=== PATIENT | female | born 1960 | race Caucasian/White ===

== ENCOUNTER 2017-07-18 19:31 | Emergency (ER) | payer OTHER, MEDICAID ==
[~2017-07-18] VITALS: Ht 160 cm; Wt 173.7 kg
[~2017-07-18 19:31] MED LIST: ACIPHEX; ADVAIR 250-501 EACH IH; ADVAIR 250-501 EACH INH; ALBUTEROL2.5 MG/32 INH; ANASPAZ0.125 MG SL; ASPIRIN81 M2 PO; BENICAR20 MG PO; BENICAR40 MG PO; BRILINTA90 MG PO; CELEBREX 200 M200 M1 PO; CIPROFLOXACIN500 M1 PO; COMBIVENT IN; DOXYCYCLINE 10100 MG PO; FLAGYL500 MG PO; GLUCOPHAGE500 MG PO; IBUPROFEN 800800 MG PO; JANUMET 50-5001 EACH PO; LASIX 20 MG TAB20 MG PO; LIORESAL 10 MG10 MG PO; LISINOPRIL2.5 MG PO; METOPROLOL SUCC25 M1 PO; MOBIC15 MG PO; MOBIC7.5 M1 PO; NIASPAN 500 MG500 M1 PO; NITROGLYCERIN0.4 MG SL; NORCO 5-325 TA1 EACH PO; NORETHINDRONE AC5 M1 PO; NYSTATIN 1100000 U/M PO; ONDANSETRON ODT4 MG PO; OXYGEN; PROVENTIL IH; SINGULAIR 10 MG10 M1 PO; SYMBICORT; TRAMADOL 50 MG50 MG PO; VALIUM5 MG PO; VENTOLIN HFA 1818 GM INH; XANAX 0.5 MG0.5 M1 PO; ZANTAC 150MG T150 M1 PO; ZOCOR40 MG PO; ZYRTEC 10 MG TA10 M1 PO; ZYRTEC 10 MG TA10 MG PO
[2017-07-18] MEDS ORDERED: XANAX 0.5 MG0.5 MG PO (19:41)
[2017-07-18 20:02] LABS: ABSOLUTE BASOPHILS 0.1 thou/uL (0.0-0.2); ABSOLUTE EOSINOPHILS 0.4 thou/uL (0.0-0.7); ABSOLUTE LYMPHOCYTES 2.5 thou/uL (0.8-5.3); ABSOLUTE MONOCYTES 0.7 thou/uL (0.0-1.2); ABSOLUTE NEUTROPHILS 9.6 thou/uL (1.6-8.1); BASOPHILS 0.6 %; EOSINOPHILS 2.8 %; HEMOGLOBIN 16.7 gm/dL (12.0-15.0); LYMPHOCYTES 19.1 %; MCH 29.5 pg (26.0-34.0); MCHC 32.7 g/dL (28.0-37.0); MCV 90.1 fL (80.0-100.0); MONOCYTES 5.3 %; MPV 10.3 fl. (7.2-11.1); NUCLEATED RBCS 0 /100WBC; PLATELET COUNT* 227 thou/uL (150-400); POLYS 72.2 %; RBC 5.67 mil/uL (4.20-5.00); RDW-CV 14.7 % (10.5-14.5); WBC 13.3 thou/uL (4.0-11.0)
[2017-07-18 20:18] LABS: CALCIUM 9.3 mg/dL (8.5-10.1); POTASSIUM 4.5 mmol/L (3.5-5.1)
[2017-07-18 20:27] LABS: URINE BILIRUBIN NEGATIVE (Negative); URINE BLOOD 2+ (Negative); URINE CLARITY CLEAR; URINE COLOR YELLOW; URINE GLUCOSE-RANDOM 2+ (Negative); URINE KETONES NEGATIVE (Negative); URINE LEUKOCYTES-REFLEX NEGATIVE (Negative); URINE NITRITE-REFLEX NEGATIVE (Negative); URINE PROTEIN NEGATIVE (Negative); URINE SPECIFIC GRAVITY 1.025 (1.005-1.030); URINE UROBILINOGEN 0.2 E.U./dl (0.2-1.0)
[2017-07-18 20:30] LABS: ALBUMIN 3.3 g/dL (3.4-5.0); TOTAL BILIRUBIN 0.5 mg/dL (<0.1-1.0); TOTAL PROTEIN 7.5 g/dL (6.4-8.2)
[2017-07-18 20:39] LABS: CASTS None Seen /LPF (None Seen); SQUAMOUS >10 Many /LPF (0-3)
[2017-07-18 20:41] LABS: BACTERIA-REFLEX 1-9 Few /HPF (None Seen); CRYSTALS None Seen /LPF (None Seen); URINE RBC 3-10 Few /HPF (0-2); URINE WBC-REFLEX 0-5 Rare /HPF (0-5)
[2017-07-18] MEDS ORDERED: HYDROCODONE-AP1 EAC6 PO (21:18)
[2017-07-18] MEDS ORDERED: BACTRIM DS TAB1 EACH PO (21:37)
[2017-07-18 21:48] VITALS: BP 166/78
[2017-12-26] MEDS ORDERED: AYGESTIN 5 MG TA5 M1 PO (10:32)
[2017-12-26] MEDS ORDERED: LASIX PO (10:36)
[2017-12-26] MEDS ORDERED: SINGULAIR 10 MG10 M1 PO (10:36)
[2017-12-26] MEDS ORDERED: OXYBUTYNIN CHLO10 MG PO (10:37)
[2017-12-26] MEDS ORDERED: ATORVASTATIN CA40 MG PO (10:37)
[2017-12-26] MEDS ORDERED: VICTOZA0.6 MG/0.1 SUBQ (10:37)
[2017-12-26] MEDS ORDERED: OXYGEN MISCELL (10:44)
== END 2017-07-18 21:52 | disposition home or self-care (01) ==
LOC: M.ERS 19:31
PROVIDERS: Physician Assistant
DX: R10.32 Left lower quadrant pain (principal); R31.9 Hematuria, unspecified; J45.909 Unspecified asthma, uncomplicated; M19.90 Unspecified osteoarthritis, unspecified site; E11.9 Type 2 diabetes mellitus without complications; F17.210 Nicotine dependence, cigarettes, uncomplicated; Z95.5 Presence of coronary angioplasty implant and graft; Z88.5 Allergy status to narcotic agent; Z88.1 Allergy status to other antibiotic agents; Z88.0 Allergy status to penicillin; Z91.040 Latex allergy status; Z88.8 Allergy status to other drugs, medicaments and biological substances

== ENCOUNTER → 2017-08-21 | Outpatient (CLI) | payer OTHER, MEDICAID ==
[~2017-08-21] MED LIST changes: +ATORVASTATIN CA40 MG PO; +AYGESTIN 5 MG TA5 M1 PO; +BACTRIM DS TAB1 EACH PO; +HYDROCODONE-AP1 EAC6 PO; +LASIX PO; +OXYBUTYNIN CHLO10 MG PO; +OXYGEN MISCELL; +VICTOZA0.6 MG/0.1 SUBQ; +XANAX 0.5 MG0.5 MG PO
== END ==
LOC: M.RAD 11:00 → M.LAB 11:02 → M.ULTRA 11:30
DX: Z12.31 Encounter for screening mammogram for malignant neoplasm of breast (principal); N93.8 Other specified abnormal uterine and vaginal bleeding; N88.8 Other specified noninflammatory disorders of cervix uteri; Z68.44 Body mass index [BMI] 60.0-69.9, adult; Z87.42 Personal history of other diseases of the female genital tract

== ENCOUNTER → 2017-10-13 | Outpatient (CLI) | payer OTHER, MEDICAID | LOC: M.RAD 11:10 | DX: N39.0 Urinary tract infection, site not specified (principal); M17.11 Unilateral primary osteoarthritis, right knee ==

== ENCOUNTER → 2017-12-26 | Outpatient (CLI) | payer MEDICARE, MEDICAID ==
--- NOTE | 2018-01-04 15:18 | PAINCON ---
[address] [address] PAIN MANAGEMENT CONSULTATION Name: DIOGO MEDINA Room: [facility] Priscilla#: [id number] Admission: 12/26/17 Attend Phys: Gladys Anderson MD Discharge: Date of : 60 Report #: [id number] THIS REPORT FOR: //name// CC: Alicia Anderson DATE OF SERVICE: 12/26/2017 CHIEF COMPLAINT: Chronic pain in her arms, wrists, knees, fingers and shoulders. FOLLOWUP HISTORY: The patient is a 57-year-old female who has been referred to the Pain Clinic for evaluation. The patient states that she has a history of chronic pain. It stems from Lyme's disease. It has been problematic since about 2003. Between 2003 and 2006, there was some question as to what the problem was. She was then diagnosed in 2008 by an infection specialist as having had Lyme's disease. She continues to have pain and discomfort in joints, involving her neck, shoulders, wrists and elbows, and some generalized joint pain. She feels that her pain can wax and wane in 3-4 day intervals. She notes some increased severity in the pain. Pain is worsened with cold weather, stress, and exhaustion. I am not sure that anything significantly improves its character. She describes it as continuous, burning, cramping, aching, pounding, and tender. She rates it as a 7/10 on most days. The patient has some problems with a bleeding disorder. She is not to take nonsteroidal anti-inflammatory medications on a regular basis because of this. She has used prednisone. Problem with prednisone is that she has some untoward reactions with this medication. She must take Benadryl as a precaution when she uses prednisone medication secondary to untoward problems that she has had with it in the past. ALLERGIES: BAND-AIDS, CEPHALEXIN, MONOHYDRATE FROM KEFLEX, PENICILLIN, CODEINE, METHYLPREDNISOLONE, PREDNISONE, LEVOFLOXACIN, LATEX. CURRENT MEDICATIONS: Ventolin 2 puffs, alprazolam 0.5 mg t.i.d., aspirin 81 mg, Lipitor 40 mg, baclofen 10 mg t.i.d., Celebrex p.r.n. 200 mg, Zyrtec 10 mg, Advair 250/50 one puff b.i.d., Victoza 0.6 mg injection subcutaneously, Singulair 10 mg, norethindrone 5 mg t.i.d., Benicar 40 mg, oxybutynin 10 mg, oxygen 2 liters, Janumet 50/500, tramadol 50 mg t.i.d., Lasix p.r.n. PAST MEDICAL HISTORY: 1. Arthritis. 2. Asthma. 3. Bleeding disorder. 4. Diabetes mellitus. 5. Gallstone. 6. Heart attack. 7. [place] [address] PAIN MANAGEMENT CONSULTATION Name: DIOGO MEDINA Room: [facility]#: [id number] Admission: 12/26/17 Attend Phys: Gladys Anderson MD Discharge: Date of : 60 Report #: [id number] 8. Hypertension. 9. Insomnia. PAST SURGICAL HISTORY: 1. , classical in 1982, 1986, 1987, 1993. 2. Cholecystectomy in 1994. 3. Hernia repair in 1997, 1998. 4. Tonsils and adenoids in 1971. 5. Tubal ligation in 1993. FAMILY HISTORY: Hypertension, mother. Colon cancer, father. 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 She does smoke cigarettes. REVIEW OF SYSTEMS: Questionnaire 12-point: Generally good health, wears glasses, heart trouble, shortness of breath with walking, frequent urination, kidney stones, diabetes, heat/cold intolerance, joint pain, joint stiffness, weakness of muscles, muscle pain, cramping, difficulty walking, tremors, nervousness, insomnia, easy bruising. LABORATORY DATA: No new laboratory values are available at the time of our interview. PAIN CLINIC ASSESSMENT: 1. History of osteoarthritis: The patient has seen an orthopedic doctor in regards to her right knee pain. 2. Height 5 feet 3 inches, weight 370 pounds, BMI is 66. 3. Vital signs: Blood pressure 133/79, heart rate 102, respiratory rate 16, room air saturation 89%, temperature 98.3. Followup pulse oximeter reading 94% after the patient has been sitting and resting for a prolonged period of time. 4. Pain intensity: 7/10. 5. Fall risk: The patient has not fallen in the last 3 months. 6. Blood thinner: The patient is not on a blood thinning medication. 7. History of hypertension: The patient is not being treated for hypertension. 8. Opioids greater than 6 weeks: The patient is not on opioids, but has been using tramadol 50 mg t.i.d. last 6 weeks. 9. Risk assessment tool. 10. Functional assessment tool. 11. Recreational drug use: The patient denies use of recreational drugs. 12. Tobacco: The patient does smoke cigarettes, has smoked for about 25 years. 13. Alcohol: The patient denies use of alcoholic beverages. She states her father was an alcoholic and she chose not to drink secondary to this problem. PHYSICAL EXAMINATION: GENERAL: The patient is a well-developed white female. Morbidly [place] [address] PAIN MANAGEMENT CONSULTATION Name: DIOGO MEDINA Room: [facility]#: [id number] Admission: 12/26/17 Attend Phys: Gladys Anderson MD Discharge: Date of : 60 Report #: [id number] alert and oriented x 3. Affect is appropriate. Speech is fluent. HEENT: Normocephalic, atraumatic. Extraocular eye muscles intact. Mucous membranes are moist. Sclerae nonicteric. Hearing is within normal limits. NECK: Without adenopathy or JVD. LUNGS: Distant. HEART: The patient states she has a history of a murmur. ABDOMEN: Protuberant with a significant pannus. EXTREMITIES: Upper extremity muscle strength is judged to be 5/5 for the major muscle groups. Lower extremity muscle strength 5/5. The patient complains of pain and discomfort in her right knee. Complains of pain and discomfort in the shoulders, neck, wrists and joints. IMPRESSION: 1. History of Lyme's disease, contacted in 2013, diagnosed in 2008, with generalized aches and pain in the muscles and joints. 2. Asthma. 3. Bleeding disorder. 4. Diabetes mellitus. 5. History of gallstones. 6. History of broken heart syndrome. 7. Heart attack. 8. Heart disease. 9. Hypertension. 10. Insomnia. 11. The patient was hospitalized with respiratory distress this flu season with compromise of her oxygenation. 12. Obstructive sleep apnea. 13. Obesity. 14. Hypoventilation syndrome. 15. Urinary incontinence. RECOMMENDATIONS: I had a long discussion with the patient. She does have chronic pain associated with Lyme's disease. This has been reported as a chronic problem as a result of Lyme's disease. She has some difficulty with her breathing. She states that she had H-1 flu this year and was hospitalized as a result of that. She has continued to have significant problems with her breathing since that time. Unable to walk or exercise to any great length secondary to increasing shortness of breath. The patient is on oxygen at home because of this. We described the reasoning behind use of CPAP machines, oxygen and those respiratory treatments, which can be helpful with asthma. The patient has a saturation today at rest during the interview at 89%. We have explained to her that I am not sure that we have any opioids medications or other medications, which would not cause some problems for her. Given that she has respiratory problems and is on oxygen, use of an opioid medication will probably suppress this even more so worsening the strain on her heart while she is asleep. She finds that tramadol is not as effective as she would like. Again, [place] [address] PAIN MANAGEMENT CONSULTATION Name: DIOGO MEDINA Room: [facility]#: [id number] Admission: 12/26/17 Attend Phys: Gladys Anderson MD Discharge: Date of : 60 Report #: [id number] I am not sure of any other pain medications that will be helpful. She states that she has a bleeding disorder, that she is not to take nonsteroidal anti-inflammatories on a long-term basis. We explained that our position is to help patients and avoid hurting them. At this juncture, I think she should continue with tramadol as tolerated. Other medications might worsen her condition. We would like to thank you for letting us participate in her care. We hope she continues to improve. <ELECTRONICALLY SIGNED> By: Gladys Anderson MD 01/04/18 1518 1509 1959N. Shane Anderson MD /nt
== END ==
LOC: M.PC 11-30 10:40
DX: I11.0 Hypertensive heart disease with heart failure (principal); I50.89 Other heart failure; E11.9 Type 2 diabetes mellitus without complications; J45.909 Unspecified asthma, uncomplicated; G47.00 Insomnia, unspecified; E66.2 Morbid (severe) obesity with alveolar hypoventilation; R32 Unspecified urinary incontinence

== ENCOUNTER → 2018-04-17 | Outpatient (CLI) | payer OTHER, MEDICAID ==
[2018-04-17 11:16] LABS: ABSOLUTE BASOPHILS 0.1 thou/uL (0.0-0.2); ABSOLUTE EOSINOPHILS 0.4 thou/uL (0.0-0.7); ABSOLUTE LYMPHOCYTES 2.5 thou/uL (0.8-5.3); ABSOLUTE MONOCYTES 0.5 thou/uL (0.0-1.2); ABSOLUTE NEUTROPHILS 7.8 thou/uL (1.6-8.1); BASOPHILS 0.8 %; EOSINOPHILS 3.1 %; HEMATOCRIT 49.1 % (37.0-47.0); HEMOGLOBIN 16.3 gm/dL (12.0-15.0); LYMPHOCYTES 22.5 %; MCH 29.9 pg (26.0-34.0); MCHC 33.2 g/dL (28.0-37.0); MCV 90.2 fL (80.0-100.0); MONOCYTES 4.5 %; MPV 9.6 fl. (7.2-11.1); NUCLEATED RBCS 0 /100WBC; PLATELET COUNT* 236 thou/uL (150-400); POLYS 69.1 %; RBC 5.44 mil/uL (4.20-5.00); WBC 11.3 thou/uL (4.0-11.0)
== END ==
LOC: M.LAB 10:52
PROVIDERS: Family Medicine
DX: D72.829 Elevated white blood cell count, unspecified (principal)

== ENCOUNTER 2018-06-07 13:11 | Emergency (ER) | payer OTHER, MEDICAID ==
[~2018-06-07] VITALS: Ht 162.6 cm; Wt 165.1 kg
--- NOTE | ~2018-06-07 | EKG ---
[place] [address] ELECTROCARDIOGRAM REPORT Name: DIOGO MEDINA [facility]#: [id number] Admission: 06/07/18 Attend Phys: Discharge: 06/07/18 Date of : 60 Report #: [id number] THIS REPORT FOR: //name// [facility] ED Test Date: 2018-06-07 Test Time: 14:26:33 Pat Name: DIOGO MEDINA Department: Room: Gender: F Tree Topper: RACHEL SAVAGE : 1960 Requested By: Kasandra Herrera Order Number: [id number] MD: Measurements Intervals [place] Rate: 91 P: 25 SC: 187 QRS: 118 QRSD: 101 T: 31 QT: 346 QTc: 426 Interpretive Statements Sinus rhythm Anteroseptal infarct, age indeterminate Compared to ECG 01/18/2013 08:09:32 Myocardial infarct finding now present Incomplete right bundle-branch block no longer present Left posterior fascicular block no longer present T-wave abnormality no longer present Prolonged QT interval no longer present [email or web address] By: 1426 1426 [place], [place] /JANEEN
[2018-06-07 14:07] LABS: ABSOLUTE EOSINOPHILS 0.1 thou/uL (0.0-0.7); ABSOLUTE LYMPHOCYTES 1.7 thou/uL (0.8-5.3); ABSOLUTE MONOCYTES 0.8 thou/uL (0.0-1.2); ABSOLUTE NEUTROPHILS 6.9 thou/uL (1.6-8.1); BASOPHILS 0.4 %; EOSINOPHILS 1.2 %; HEMATOCRIT 49.9 % (37.0-47.0); HEMOGLOBIN 16.6 gm/dL (12.0-15.0); LYMPHOCYTES 17.9 %; MCH 30.1 pg (26.0-34.0); MCHC 33.2 g/dL (28.0-37.0); MCV 90.7 fL (80.0-100.0); MONOCYTES 8.8 %; MPV 10.1 fl. (7.2-11.1); NUCLEATED RBCS 0 /100WBC; PLATELET COUNT* 248 thou/uL (150-400); POLYS 71.7 %; WBC 9.6 thou/uL (4.0-11.0)
[2018-06-07 14:09] LABS: BE 0.6 mmol/L (-2 to +3); HCO3 24.8 mmol/L (22.0-26.0); PCO2 38.8 mmHg (35.0-45.0); PO2 83.4 mmHg (75.0-100.0); pH 7.424 (7.340-7.450)
[2018-06-07 14:13] LABS: ANION GAP 10 mmol/L (7-16); BUN 13 mg/dL (7-18); CALCIUM 9.4 mg/dL (8.5-10.1); CHLORIDE 96 mmol/L (98-107); CO2 27 mmol/L (21-32); CREATININE 1.1 mg/dL (0.6-1.3); GLUCOSE 144 mg/dL (70-99); POTASSIUM 4.2 mmol/L (3.5-5.1); SODIUM 133 mmol/L (136-145)
[2018-06-07 14:20] LABS: ALBUMIN 3.5 g/dL (3.4-5.0); ALKALINE PHOSPHATASE 45 U/L (46-116); SGOT 47 U/L (15-37); SGPT 38 U/L (30-65); TOTAL BILIRUBIN 0.6 mg/dL (<0.1-1.0); TOTAL PROTEIN 7.8 g/dL (6.4-8.2); TROPONIN-I LEVEL <0.06 ng/mL (<0.06)
[2018-06-07] MEDS ORDERED: TESSALON PERLE100 M1 PO (16:19)
[2018-06-07] MEDS ORDERED: SPACE CHAMBER1 EACH INH (16:43)
[2018-06-07] MEDS ORDERED: DOXYCYCLINE HY100 M3 PO (16:43)
[2018-06-07 17:28] VITALS: BP 126/63
== END 2018-06-07 17:30 | disposition home or self-care (01) ==
LOC: M.ERS 13:11
PROVIDERS: Nurse Practitioner Family
DX: J20.9 Acute bronchitis, unspecified (principal); T38.0X5A Adverse effect of glucocorticoids and synthetic analogues, initial encounter; Y92.9 Unspecified place or not applicable; J45.909 Unspecified asthma, uncomplicated; M19.90 Unspecified osteoarthritis, unspecified site; M79.7 Fibromyalgia; E11.9 Type 2 diabetes mellitus without complications; Z95.5 Presence of coronary angioplasty implant and graft; Z90.49 Acquired absence of other specified parts of digestive tract; Z98.890 Other specified postprocedural states; F17.210 Nicotine dependence, cigarettes, uncomplicated; Z88.0 Allergy status to penicillin; Z88.1 Allergy status to other antibiotic agents; Z88.5 Allergy status to narcotic agent; Z91.040 Latex allergy status; Z88.8 Allergy status to other drugs, medicaments and biological substances

== ENCOUNTER 2018-06-09 08:05 | Inpatient (IN) | payer OTHER, MEDICAID ==
[~2018-06-09] VITALS: Ht 162.6 cm; Wt 166.5 kg
[~2018-06-09 08:05] MED LIST changes: +DOXYCYCLINE HY100 M3 PO; +SPACE CHAMBER1 EACH INH; +TESSALON PERLE100 M1 PO; -ZYRTEC 10 MG TA10 M1 PO
[2018-06-09 08:07] VITALS: BP 155/68
[2018-06-09 08:55] LABS: INFLUENZA A ANTIGEN None Detected (None Detect); INFLUENZA B ANTIGEN None Detected (None Detect)
[2018-06-09 09:06] LABS: ABSOLUTE BASOPHILS 0.1 thou/uL (0.0-0.2); ABSOLUTE EOSINOPHILS 0.1 thou/uL (0.0-0.7); ABSOLUTE LYMPHOCYTES 1.4 thou/uL (0.8-5.3); ABSOLUTE MONOCYTES 0.9 thou/uL (0.0-1.2); ABSOLUTE NEUTROPHILS 7.4 thou/uL (1.6-8.1); BASOPHILS 0.6 %; EOSINOPHILS 0.9 %; HEMOGLOBIN 16.5 gm/dL (12.0-15.0); MCH 29.8 pg (26.0-34.0); MCHC 33.1 g/dL (28.0-37.0); MCV 90.1 fL (80.0-100.0); MONOCYTES 9.4 %; MPV 10.5 fl. (7.2-11.1); NUCLEATED RBCS 0 /100WBC; PLATELET COUNT* 207 thou/uL (150-400); POLYS 75.1 %; RBC 5.55 mil/uL (4.20-5.00); RDW-CV 14.7 % (10.5-14.5); WBC 9.8 thou/uL (4.0-11.0)
[2018-06-09 09:11] LABS: ANION GAP 9 mmol/L (7-16); BUN 11 mg/dL (7-18); CALCIUM 8.5 mg/dL (8.5-10.1); CHLORIDE 95 mmol/L (98-107); CO2 28 mmol/L (21-32); GLUCOSE 152 mg/dL (70-99); POTASSIUM 4.4 mmol/L (3.5-5.1); SODIUM 132 mmol/L (136-145)
[2018-06-09 09:15] LABS: INR 1.1; PROTIME 10.8 Seconds (9.20-11.50)
[2018-06-09 09:21] LABS: ALBUMIN 3.3 g/dL (3.4-5.0); ALKALINE PHOSPHATASE 46 U/L (46-116); LIPASE 209 U/L (73-393); NT-PRO BRAIN NAT PEPTIDE 57 pg/mL (<300); SGOT 37 U/L (15-37); SGPT 34 U/L (30-65); TOTAL BILIRUBIN 0.7 mg/dL (<0.1-1.0); TOTAL PROTEIN 7.6 g/dL (6.4-8.2); TROPONIN-I LEVEL <0.06 ng/mL (<0.06)
[2018-06-09 09:49] VITALS: BP 130/82
[2018-06-09 10:00] VITALS: BP 148/81
[2018-06-09] MEDS ORDERED: NORCO 5-325 TA1 EACH PO (10:13)
[2018-06-09 12:01] LABS: AMP/METHAMP Negative (Negative); BARBITURATES Negative (Negative); BENZODIAZEPINES POSITIVE (Negative); COCAINE Negative (Negative); METHADONE Negative (Negative); OPIATES POSITIVE (Negative); PCP Negative (Negative); THC Negative (Negative)
[2018-06-09 15:25] LABS: BE 1.5 mmol/L (-2 to +3); HCO3 26.5 mmol/L (22.0-26.0); PCO2 42.6 mmHg (35.0-45.0); PO2 89.3 mmHg (75.0-100.0); pH 7.411 (7.340-7.450)
[2018-06-09 16:14] VITALS: BP 187/80
[2018-06-09 20:00] VITALS: BP 123/64
[2018-06-10] VITALS: BP 108/83
[2018-06-10 04:00] VITALS: BP 137/75
[2018-06-10 04:36] LABS: HEMATOCRIT 47.8 % (37.0-47.0); MCH 30.4 pg (26.0-34.0); MCHC 33.5 g/dL (28.0-37.0); MCV 90.8 fL (80.0-100.0); MPV 10.3 fl. (7.2-11.1); NUCLEATED RBCS 0 /100WBC; PLATELET COUNT* 206 thou/uL (150-400); RBC 5.26 mil/uL (4.20-5.00); RDW-CV 14.6 % (10.5-14.5); WBC 9.3 thou/uL (4.0-11.0)
[2018-06-10 04:46] LABS: CALCIUM 8.6 mg/dL (8.5-10.1); POTASSIUM 5.2 mmol/L (3.5-5.1)
[2018-06-10 05:31] LABS: ABSOLUTE MONOCYTES 0.3 thou/uL (0.0-1.2); ANISOCYTOSIS Occasional; PLATELET ESTIMATE ADEQUATE; TOXIC GRANULATION 1+
[2018-06-10 07:49] VITALS: BP 146/67
[2018-06-10 12:00] VITALS: BP 161/57
--- NOTE | 2018-06-10 15:35 | EKG ---
[place] [address] ELECTROCARDIOGRAM REPORT Name: DIOGO MEDINA Room: [address] ADM IN .R.#: [id number] Admission: 06/09/18 Attend Phys: Fabio Khalil MD Discharge: Date of : 60 Report #: [id number] THIS REPORT FOR: //name// [facility] ED Test Date: 2018-06-09 Test Time: 08:11:59 Pat Name: DIOGO MEDINA Department: Room: [facility] Gender: F Director Of Strategic Partnerships: Tameka MAGDALENO : 1960 Requested By: Kartik Hart Order Number: [id number] MD: Domingo Adams Measurements Intervals [place] Rate: 101 P: 6 SC: 160 QRS: 123 QRSD: 82 T: 31 QT: 320 QTc: 415 Interpretive Statements Sinus tachycardia Right axis deviation Incomplete right bundle-branch block Low voltage, precordial leads Anteroseptal infarct, age indeterminate, possible Baseline wander in lead(s) V1 Compared to ECG 01/18/2013 08:09:32 Right-axis deviation now present Myocardial infarct finding now present Sinus rhythm no longer present Prolonged QT interval no longer present Electronically Signed On 06-10-2018 15:35:15 [employer]OMATERIALS ENGINEER by Domingo Adams [email or web address] <ELECTRONICALLY SIGNED> By: Domingo Adams MD, [facility] 06/10/18 1535 0 0 Domingo Adams MD, FAC /EPI
[2018-06-10 16:00] VITALS: BP 177/75
[2018-06-10 19:40] VITALS: BP 117/91
[2018-06-11 00:05] VITALS: BP 138/84
[2018-06-11 04:00] VITALS: BP 149/79
[2018-06-11 04:34] LABS: ABSOLUTE LYMPHOCYTES 0.9 thou/uL (0.8-5.3); ABSOLUTE MONOCYTES 0.8 thou/uL (0.0-1.2); ABSOLUTE NEUTROPHILS 9.3 thou/uL (1.6-8.1); BASOPHILS 0.1 %; HEMATOCRIT 48.2 % (37.0-47.0); HEMOGLOBIN 15.7 gm/dL (12.0-15.0); LYMPHOCYTES 8.5 %; MCH 29.8 pg (26.0-34.0); MCHC 32.7 g/dL (28.0-37.0); MCV 91.1 fL (80.0-100.0); MONOCYTES 7.3 %; MPV 10.2 fl. (7.2-11.1); NUCLEATED RBCS 0 /100WBC; PLATELET COUNT* 222 thou/uL (150-400); POLYS 84.1 %; RBC 5.29 mil/uL (4.20-5.00); RDW-CV 14.6 % (10.5-14.5); WBC 11.1 thou/uL (4.0-11.0)
[2018-06-11 05:02] LABS: CALCIUM 8.5 mg/dL (8.5-10.1); CREATININE 1.1 mg/dL (0.6-1.3); POTASSIUM 4.2 mmol/L (3.5-5.1); TOTAL BILIRUBIN 0.3 mg/dL (<0.1-1.0); TOTAL PROTEIN 7.1 g/dL (6.4-8.2)
[2018-06-11 07:59] VITALS: BP 138/57
--- NOTE | 2018-06-11 08:12 | CON ---
[facility] [address] [place] [address] CONSULTATION Name: DIOGO MEDINA Room: [address] IN M.R.#: [id number] Admission: 06/09/18 Attend Phys: Fabio Khalil MD Discharge: Date of : 60 Report #: [id number] THIS REPORT FOR: //name// CC: Fabio Miller REQUESTING PHYSICIAN: Fabio Khalil M.D. REASON FOR CONSULTATION: Asthma exacerbation. History of tobacco abuse. DISCUSSION: The patient is a 57-year-old woman with ongoing history of tobacco abuse. She has a history of underlying asthma/COPD as well as sleep apnea. She and her son have both been ill here over the last couple of weeks. Both have developed scratchy throats. Apparently, did see her physician. Was started on a regimen. Because she has had issues with reactions to different forms of steroids, was just given a regimen to start if she had problems. She did start this at the beginning of the week. Her throat was sore, felt quite scratchy. Was feeling more short of breath. Was making noises coming from her throat. She had started taking the prednisone, was seen in the Emergency Department on 06/07/2018. Was evaluated there. ED notes that they indicate that her throat exam was unremarkable. There was no evidence of angioedema. There is no note of any ulcerations. She was discharged from the ED. She re-presented yesterday when she felt much worse. Was still having more shortness of breath. Was brought in via ambulance. Was started on CPAP en route, was also given atropine en route. ED notes indicate at that time, she did have expiratory wheezes, but did have several small ulcerations noted on her soft palate. She has been admitted. She has already been seen by Dr. Khalil. She has a fairly complicated past medical history. Unfortunately, she continues to smoke. Baseline with her asthma/COPD, she is on Advair as well as Ventolin. She notes recently she was changed to ProAir, but did not feel like it is as effective as the Ventolin, so actually paid out of pocket to get a Ventolin inhaler. She has been using that. She recently has also been started on doxycycline. She had just started Mucinex prior to coming into the hospital. For her lungs, she also does some montelukast 10 mg a day. Since she has reacted apparently to different forms of steroids in the past, the regimen she has been to also start Benadryl, Zyrtec and Zantac at the same time. She did do that this week. She has had her flu shot and she is up-to-date with her pneumonia vaccines. I am seeing her this morning, she is feeling a little better. Still feels quite scratchy in her throat and still somewhat sore. Not having any true difficulty swallowing. She has extensive past medical history. 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 She is essentially in a wheelchair much of the time. [place] [address] CONSULTATION Name: DIOGO MEDINA Room: [address] IN [facility].#: [id number] Admission: 06/09/18 Attend Phys: Fabio Khalil MD Discharge: Date of : 60 Report #: [id number] Marlon Kovacs. Known history of coronary artery disease and status post stent placement, diabetes mellitus type 2, morbid obesity (she states she has lost 100 pounds), prior C-sections, tonsillectomy, sleep apnea. She notes she was on CPAP at one time, but was having trouble tolerating that. She has not had followup sleep testing done to qualify her for BiPAP. She notes they tried to get someone to come to the home to do it and they were unable to do that. Denies a history of GERD. She had been hospitalized with influenza some years back, cellulitis, prior cholecystectomy. She follows with Dr. Ethan Mason. She notes she does not see an production editor nor she had an extensive allergy evaluation. She notes her son has similar issues to what she has. He apparently had had extensive testing done through [employer] [employer] in the past. He also related allergies to "steroids." I do not have any of those specific details. SOCIAL HISTORY: Smoker as noted. I believe she lives with some family. FAMILY HISTORY: Positive for mesothelioma and asthma. REVIEW OF SYSTEMS: ROS was done. Note positives as above. She notes she has lost weight (intentional). She uses a wheelchair to get around due to her "Lyme arthritis." Denies any difficulty swallowing. Has not seen ENT in the past. She denies having any formal allergy testing done in the past. She has not had any recent nausea or vomiting. She does sleep with oxygen at home. She does tend towards hives. She notes because of her allergies, she will use the Benadryl, Zyrtec and Zantac when she does take steroids. Also, relates reaction to Combivent years ago. It actually caused her to be more short of breath. She does tolerate the plain albuterol. She notes she is feeling tighter after her DuoNeb treatments here. She tends towards chronic lower extremity edema. No prior history of thromboembolic disease. PHYSICAL EXAMINATION: GENERAL APPEARANCE: Morbidly obese woman. She is hoarse. She is able to speak in full sentences. She is in no acute distress. HEENT: Head is normocephalic. Sclerae are nonicteric. Mucous membranes do look a little dry. She does have some whitish plaques seen. Dentures in. NECK: Large and full. No adenopathy is noted. No JVD is appreciated. HEART: Mildly tachycardic, but regular. No S3 is heard. LUNGS: Show breath sounds to be diminished. She has a prolonged expiratory phase. Does have some expiratory wheezes heard. Excursion is equal. ABDOMEN: Obese, but soft. No definite guarding or hepatosplenomegaly is noted. EXTREMITIES: She has no clubbing. Radial pulses are present. Lower extremities, she has trace edema. SKIN: Warm and dry. NEUROLOGIC: She is alert and [place] 3[place] [address] CONSULTATION Name: DIOGO MEDINA Room: [address]#: [id number] Admission: 06/09/18 Attend Phys: Fabio Khalil MD Discharge: Date of : 60 Report #: [id number] LABORATORY AND X-RAY FINDINGS: On her chemistry, BUN is 12, creatinine 1.0, potassium is 5.2 this morning. Calcium 8.6. ProBNP 57. Troponins unremarkable. White blood cell count 9300, hemoglobin 16, hematocrit 47.8, platelets 206,000. Influenza screen done yesterday was negative. Strep screen was negative. Arterial blood gases done yesterday revealed a pH of 7.41, pCO2 of 43, pO2 of 89, bicarbonate 27 with a saturation of 95%. That was on 5 liters of oxygen. Throat culture for strep is pending. A chest x-ray was done. It was a portable study. Poor inspiration. Has some atelectatic changes seen in the bases. She did have a CTA of her chest done several days ago when she was in the ED. No pulmonary emboli were seen. No pleural effusions. No pneumothorax. Coronary calcifications were noted. IMPRESSION: 1. Probable viral syndrome. 2. Asthma/chronic obstructive pulmonary disease exacerbation. 3. Multiple medication intolerances versus allergies. It is difficult to sort out, she has a very complex history. Reportedly, has had issues with many of the steroids (though she was able to take dexamethasone some years ago) as well as the anticholinergics. 4. Morbid obesity, reportedly has been losing weight. 5. Diabetes mellitus. 6. Obstructive sleep apnea. Does not sleep with a CPAP or BiPAP. Uses O2 at home. 7. Ongoing tobacco abuse. 8. Oral candidiasis. 9. History of coronary artery disease status post stent placement in 2013. RECOMMENDATIONS: 1. Change DuoNeb over to straight albuterol. 2. Add Brovana since she is on Advair at home. 3. Nystatin for her oral candidiasis. 4. Long-term, consider repeat sleep study or assessment for BiPAP at home. She is not hypercapnic, so does not qualify for a Trilogy or noninvasive ventilator based on her underlying chronic obstructive pulmonary disease. 5. Continued weight loss. 6. Complete smoking cessation. 7. Extensive allergy evaluation may be prudent in the future. However, we would want her over this acute event. <ELECTRONICALLY SIGNED> By: Jere Hewitt MD 06/11/18811 7 [id number] Augustine MD /nt
[2018-06-11 12:00] VITALS: BP 139/66
[2018-06-11 17:07] VITALS: BP 151/54
[2018-06-11 20:00] VITALS: BP 143/53
[2018-06-12] VITALS: BP 122/71
[2018-06-12 04:00] VITALS: BP 147/63
[2018-06-12 04:49] LABS: ABSOLUTE LYMPHOCYTES 1.5 thou/uL (0.8-5.3); ABSOLUTE MONOCYTES 0.8 thou/uL (0.0-1.2); ABSOLUTE NEUTROPHILS 7.5 thou/uL (1.6-8.1); BASOPHILS 0.4 %; EOSINOPHILS 0.1 %; HEMATOCRIT 48.3 % (37.0-47.0); HEMOGLOBIN 15.6 gm/dL (12.0-15.0); LYMPHOCYTES 15.5 %; MCH 29.7 pg (26.0-34.0); MCHC 32.2 g/dL (28.0-37.0); MCV 92.2 fL (80.0-100.0); MONOCYTES 7.9 %; MPV 10.4 fl. (7.2-11.1); NUCLEATED RBCS 0 /100WBC; PLATELET COUNT* 210 thou/uL (150-400); POLYS 76.1 %; RBC 5.24 mil/uL (4.20-5.00); RDW-CV 14.7 % (10.5-14.5); WBC 9.8 thou/uL (4.0-11.0)
[2018-06-12 05:03] LABS: CALCIUM 8.1 mg/dL (8.5-10.1); POTASSIUM 4.6 mmol/L (3.5-5.1)
[2018-06-12 08:00] VITALS: BP 107/57
[2018-06-12 11:33] VITALS: BP 142/61
[2018-06-12 15:00] VITALS: BP 144/61
[2018-06-12 20:00] VITALS: BP 153/77
[2018-06-13] VITALS: BP 126/66
[2018-06-13 04:00] VITALS: BP 119/74
[2018-06-13 08:00] VITALS: BP 146/65
[2018-06-13 12:18] VITALS: BP 156/62
[2018-06-13 16:00] VITALS: BP 148/66
[2018-06-13 18:10] LABS: ADENOVIRUS Negative (Negative); INFLUENZA A Negative (Negative); INFLUENZA B Negative (Negative); METAPNEUMOVIRUS Negative (Negative); PARAINFLUENZA 1 Negative (Negative); PARAINFLUENZA 2 Negative (Negative); PARAINFLUENZA 3 Negative (Negative); RHINOVIRUS Negative (Negative); RSV A Negative (Negative); RSV B Negative (Negative)
[2018-06-13 20:00] VITALS: BP 122/61
[2018-06-14] VITALS: BP 151/76
[2018-06-14 04:00] VITALS: BP 136/61
[2018-06-14 04:51] LABS: ABSOLUTE EOSINOPHILS 0.2 thou/uL (0.0-0.7); ABSOLUTE LYMPHOCYTES 2.6 thou/uL (0.8-5.3); ABSOLUTE MONOCYTES 0.6 thou/uL (0.0-1.2); BASOPHILS 0.4 %; EOSINOPHILS 2.2 %; HEMATOCRIT 48.3 % (37.0-47.0); HEMOGLOBIN 15.9 gm/dL (12.0-15.0); LYMPHOCYTES 30.6 %; MCHC 32.9 g/dL (28.0-37.0); MCV 91.2 fL (80.0-100.0); MONOCYTES 7.1 %; MPV 9.8 fl. (7.2-11.1); NUCLEATED RBCS 0 /100WBC; PLATELET COUNT* 214 thou/uL (150-400); POLYS 59.7 %; RBC 5.29 mil/uL (4.20-5.00); RDW-CV 14.5 % (10.5-14.5); WBC 8.4 thou/uL (4.0-11.0)
[2018-06-14 05:08] LABS: ALBUMIN 2.8 g/dL (3.4-5.0); CALCIUM 8.5 mg/dL (8.5-10.1); CREATININE 0.9 mg/dL (0.6-1.3); TOTAL BILIRUBIN 0.6 mg/dL (<0.1-1.0); TOTAL PROTEIN 6.6 g/dL (6.4-8.2)
[2018-06-14 08:16] VITALS: BP 129/72
[2018-06-14 11:00] VITALS: BP 153/77
[2018-06-14 16:00] VITALS: BP 119/62
[2018-06-14 20:56] VITALS: BP 135/78
[2018-06-15] VITALS: BP 143/56; BP 145/55
[2018-06-15 04:00] VITALS: BP 145/77
--- NOTE | 2018-06-15 07:45 | CON ---
[address] [address] CONSULTATION Name: DIOGO MEDINA Room: [address] IN M.R.#: [id number] Admission: 06/09/18 Attend Phys: Fabio Khalil MD Discharge: Date of : 60 Report #: [id number] THIS REPORT FOR: //name// CC: Fabio Khalil Ethan Paul DATE OF SERVICE: 06/14/2018 ATTENDING PHYSICIAN: Fabio Khalil M.D. REASON FOR EVALUATION: Atypical pneumonitis, oropharyngeal ulcers. HISTORY OF PRESENT ILLNESS: Chart reviewed, the patient examined. This is a 57-year-old with known COPD, does require some oxygen in the p.m., who was admitted on the 1st with complaints of progressive shortness of breath of about 2 days' duration at that point, had been seen in the Emergency Room and treated and discharged. She does have a history of developing hypersensitivities and was given some diphenhydramine, apparently has a known history of ALLERGY TO PREDNISONE. It is not clear that she has had fevers or chills. Initial chest x-ray showed mild bibasilar densities. Repeat imaging of the chest showed ill-defined ground-glass infiltrates, question of atypical pneumonitis. She has had some sore throat and difficulty swallowing as well. CT of the neck was performed, which showed the pulmonary infiltrate. She has been empirically on therapy with aztreonam. She has not had recorded temperature elevations. She is generally lucid. Denies any significant gastrointestinal complaints, although does note she has got chronic Lyme arthritis and this limits her activity. She denies any particular exposure history. She does have a Labrador that is an indoor dog. No recent travel. She notes her son has had similar type complaints with cough and sore throat over several weeks' duration. Overall, it is clear she has not had any improvement in spite of the aggressive approach since admission. ALLERGIES: LISTED TO CEPHALEXIN WHICH CAUSES ANAPHYLAXIS, PENICILLIN URTICARIA, CODEINE, METHYLPREDNISOLONE, PREDNISONE, LEVOFLOXACIN, WHICH CAUSES URTICARIA WELL. MEDICATIONS: Include atorvastatin, diphenhydramine, hydrocortisone, insulin, famotidine, loratadine, albuterol, arformoterol, aspirin, montelukast, enoxaparin, aztreonam, baclofen, celecoxib, tramadol. PAST MEDICAL HISTORY: As described above, has known chronic Lyme with arthritis, fibromyalgia, diabetes mellitus type 2, IBS, factor V Leiden, tonsillectomy with adenoidectomy, status post cholecystectomy, x 4, hernia repair. SOCIAL HISTORY: Smokes a pack a day for the last 25 years. [place] [address] CONSULTATION Name: DIOGO MEDINA Room: [address] IN ..#: [id number] Admission: 06/09/18 Attend Phys: Fabio Khalil MD Discharge: Date of : 60 Report #: [id number] illicit drug use. FAMILY HISTORY: Noncontributory. REVIEW OF SYSTEMS: Otherwise unremarkable with the exception as described in the history of present illness. PHYSICAL EXAMINATION: GENERAL: She appears chronically ill, undernourished. She is pleasant, cooperative. She is in moderate distress. She has got nasal oxygen cannula in place. HEENT: Otherwise unremarkable. Extraocular muscles intact. Oropharynx has some small type ulcers on the posterior pharynx with some superficial whitish appearance. They are circular. There is some mild surrounding redness, quite tender. NECK: Supple. LUNGS: Few scattered coarse breath sounds. HEART: Regular. Borderline tachycardic. I do not appreciate a murmur. ABDOMEN: Soft, nontender, nondistended. There are no peritoneal signs. GENITOURINARY: Deferred. RECTAL: Deferred. LABORATORY DATA: Electrolytes: Sodium 135, potassium 4.0, chloride 98, bicarbonate is 33, BUN and creatinine 10 and 0.9, glucose of 178. LFTs unremarkable. Albumin of 2.8. Total protein 6.6. CBC: White count of 8.4, H and H 15.9 and 48.3 and platelets 214. Differential was unremarkable, normal lymphocyte count. Viral respiratory panel is negative for organisms tested including adenovirus. CT imaging was described above. Blood cultures sterile thus far. Throat culture for group A strep was negative. CRP is 7.4. Chest x-ray as noted above, mild left bibasilar atelectasis. ASSESSMENT: Suspect atypical pneumonitis. We will add azithromycin. We will check a mycoplasma studies. It seems less likely to me that this is a typical bacterial etiology, although cannot entirely exclude it. We will improve our gram-positive coverage. We will add Valtrex in the event that this is Herpesviridae as etiology due to some degree of immunosuppression given the what appears to be a history of exogenous corticosteroids. We will go ahead and try to collect a sputum sample as well. I think there is likely concern for opportunistic infections at this point. We will see how she does clinically. I have discussed with her in detail. <ELECTRONICALLY SIGNED> By: Marlon Armas MD 06/15/18 0745 1529 1755Joseronaldo Armas MD /ramesh
[2018-06-15 08:01] VITALS: BP 113/78
[2018-06-15 11:45] VITALS: BP 138/53
[2018-06-15 15:38] VITALS: BP 127/96
[2018-06-15 20:00] VITALS: BP 133/27
[2018-06-15 23:09] LABS: MYCOPLASMA PNEUMONIA IgG 1144 U/mL (0-99); MYCOPLASMA PNEUMONIA IgM <770 U/mL (0-769)
[2018-06-16] VITALS: BP 143/56
[2018-06-16 08:00] VITALS: BP 141/72
[2018-06-16 10:22] LABS: ABSOLUTE BASOPHILS 0.1 thou/uL (0.0-0.2); ABSOLUTE EOSINOPHILS 0.2 thou/uL (0.0-0.7); ABSOLUTE LYMPHOCYTES 2.3 thou/uL (0.8-5.3); ABSOLUTE MONOCYTES 0.6 thou/uL (0.0-1.2); ABSOLUTE NEUTROPHILS 6.4 thou/uL (1.6-8.1); BASOPHILS 0.6 %; EOSINOPHILS 2.5 %; HEMATOCRIT 46.6 % (37.0-47.0); HEMOGLOBIN 15.6 gm/dL (12.0-15.0); LYMPHOCYTES 24.2 %; MCH 30.4 pg (26.0-34.0); MCHC 33.6 g/dL (28.0-37.0); MCV 90.6 fL (80.0-100.0); MONOCYTES 5.9 %; MPV 9.8 fl. (7.2-11.1); NUCLEATED RBCS 0 /100WBC; PLATELET COUNT* 233 thou/uL (150-400); POLYS 66.8 %; RBC 5.15 mil/uL (4.20-5.00); RDW-CV 14.3 % (10.5-14.5); WBC 9.5 thou/uL (4.0-11.0)
[2018-06-16 10:36] LABS: ALBUMIN 2.6 g/dL (3.4-5.0); CALCIUM 9.4 mg/dL (8.5-10.1); CREATININE 0.9 mg/dL (0.6-1.3); TOTAL BILIRUBIN 0.8 mg/dL (<0.1-1.0); TOTAL PROTEIN 6.8 g/dL (6.4-8.2)
[2018-06-16 12:31] VITALS: BP 140/65
[2018-06-16 16:10] VITALS: BP 118/65
[2018-06-17] VITALS (7 sets, daily range): BP systolic 107–157; BP diastolic 60–79
[2018-06-17 05:23] LABS: ABSOLUTE BASOPHILS 0.1 thou/uL (0.0-0.2); ABSOLUTE EOSINOPHILS 0.3 thou/uL (0.0-0.7); ABSOLUTE LYMPHOCYTES 3.4 thou/uL (0.8-5.3); ABSOLUTE MONOCYTES 0.7 thou/uL (0.0-1.2); ABSOLUTE NEUTROPHILS 4.6 thou/uL (1.6-8.1); BASOPHILS 0.7 %; EOSINOPHILS 3.4 %; HEMOGLOBIN 14.9 gm/dL (12.0-15.0); LYMPHOCYTES 37.7 %; MCH 29.9 pg (26.0-34.0); MCHC 33.2 g/dL (28.0-37.0); MCV 90.3 fL (80.0-100.0); MONOCYTES 7.7 %; NUCLEATED RBCS 0 /100WBC; PLATELET COUNT* 237 thou/uL (150-400); POLYS 50.5 %; RBC 4.99 mil/uL (4.20-5.00); RDW-CV 14.2 % (10.5-14.5); WBC 9.1 thou/uL (4.0-11.0)
[2018-06-17 05:30] LABS: CALCIUM 9.3 mg/dL (8.5-10.1); CREATININE 0.9 mg/dL (0.6-1.3)
[2018-06-18 04:00] VITALS: BP 132/69
[2018-06-18 05:41] LABS: CALCIUM 9.2 mg/dL (8.5-10.1); CREATININE 0.9 mg/dL (0.6-1.3); POTASSIUM 4.1 mmol/L (3.5-5.1)
[2018-06-18 09:00] VITALS: BP 128/76
[2018-06-18 09:48] VITALS: BP 132/69
[2018-06-18] MEDS ORDERED: VALACYCLOVIR1000 MG PO (11:10)
[2018-06-18] MEDS ORDERED: DYNACIN100 MG PO (11:11)
[2018-06-18] MEDS ORDERED: MUCINEX1200 MG PO (11:11)
[2018-06-18] MEDS ORDERED: AZITHROMYCIN 2250 MG PO (11:11)
[2018-06-18] MEDS ORDERED: CORTEF10 MG PO (11:12)
[2018-06-18] MEDS ORDERED: PROTONIX40 M1 PO (11:13)
[2018-06-18] MEDS ORDERED: BENADRYL25 MG PO (11:13)
[2018-06-18] MEDS ORDERED: CARDIZEM CD120 MG PO (11:15)
[2018-06-18 11:26] VITALS: BP 132/69
[2018-06-18] MEDS ORDERED: ZANTAC 150MG T150 MG PO (11:33)
[2018-06-18] MEDS ORDERED: ALBUTEROL2.5 MG/31 INH (11:35)
== END 2018-06-18 12:34 | disposition home or self-care (01) | DRG 177 ==
LOC: M.ERS 08:05 → M.2W 09:28 → M.TBA-ER 09:28 → M.2W 10:00
PROVIDERS: Emergency Medicine; Internal Medicine; Internal Medicine Pulmonary Disease; Specialist; ADMIT Internal Medicine
DX: J15.6 Pneumonia due to other Gram-negative bacteria (principal); J96.01 Acute respiratory failure with hypoxia; J44.1 Chronic obstructive pulmonary disease with (acute) exacerbation; Z68.44 Body mass index [BMI] 60.0-69.9, adult; J45.901 Unspecified asthma with (acute) exacerbation; B37.0 Candidal stomatitis; E87.1 Hypo-osmolality and hyponatremia; J44.0 Chronic obstructive pulmonary disease with (acute) lower respiratory infection; M19.90 Unspecified osteoarthritis, unspecified site; G47.33 Obstructive sleep apnea (adult) (pediatric); K12.0 Recurrent oral aphthae; E11.9 Type 2 diabetes mellitus without complications; M79.7 Fibromyalgia; D75.1 Secondary polycythemia; I25.10 Atherosclerotic heart disease of native coronary artery without angina pectoris; R49.0 Dysphonia; E66.01 Morbid (severe) obesity due to excess calories; F17.210 Nicotine dependence, cigarettes, uncomplicated; Z95.1 Presence of aortocoronary bypass graft; Z95.5 Presence of coronary angioplasty implant and graft; Z98.891 History of uterine scar from previous surgery; Z90.49 Acquired absence of other specified parts of digestive tract; Z99.81 Dependence on supplemental oxygen; Z79.51 Long term (current) use of inhaled steroids; Z71.6 Tobacco abuse counseling; Z79.82 Long term (current) use of aspirin; Z79.899 Other long term (current) drug therapy; Z88.5 Allergy status to narcotic agent; Z88.0 Allergy status to penicillin; Z88.8 Allergy status to other drugs, medicaments and biological substances; Z88.1 Allergy status to other antibiotic agents; Z91.040 Latex allergy status; Z80.8 Family history of malignant neoplasm of other organs or systems; Z82.5 Family history of asthma and other chronic lower respiratory diseases

== ENCOUNTER 2018-12-15 22:35 | Inpatient (IN) | payer MEDICARE, MEDICAID ==
[~2018-12-15] VITALS: Ht 162.6 cm; Wt 135.2 kg
[~2018-12-15 22:35] MED LIST changes: +ALBUTEROL2.5 MG/31 INH; +AZITHROMYCIN 2250 MG PO; +BENADRYL25 MG PO; +CARDIZEM CD120 MG PO; +CORTEF10 MG PO; +DYNACIN100 MG PO; +MUCINEX1200 MG PO; +NORCO 5-325 TA1 EAC1 PO; +PROTONIX40 M1 PO; +VALACYCLOVIR1000 MG PO; +ZANTAC 150MG T150 MG PO
[2018-12-15 22:59] LABS: HEMATOCRIT 49.6 % (37.0-47.0); HEMOGLOBIN 16.6 gm/dL (12.0-15.0); MCH 30.7 pg (26.0-34.0); MCHC 33.5 g/dL (28.0-37.0); MCV 91.7 fL (80.0-100.0); MPV 10.2 fl. (7.2-11.1); NUCLEATED RBCS 0 /100WBC; PLATELET COUNT* 251 thou/uL (150-400); RBC 5.41 mil/uL (4.20-5.00); RDW-CV 15.2 % (10.5-14.5); WBC 14.1 thou/uL (4.0-11.0)
[2018-12-15 23:01] VITALS: BP 131/77
[2018-12-15 23:08] LABS: PROTIME 9.9 Seconds (9.20-11.50)
[2018-12-15 23:55] LABS: CALCIUM 9.5 mg/dL (8.5-10.1); CREATININE 1.2 mg/dL (0.6-1.3); POTASSIUM 4.7 mmol/L (3.5-5.1)
[2018-12-16] LABS: ALBUMIN 3.2 g/dL (3.4-5.0); TOTAL BILIRUBIN 0.6 mg/dL (<0.1-1.0); TOTAL PROTEIN 7.3 g/dL (6.4-8.2)
[2018-12-16 00:37] LABS: AMP/METHAMP Negative (Negative); BARBITURATES Negative (Negative); BENZODIAZEPINES POSITIVE (Negative); COCAINE Negative (Negative); METHADONE Negative (Negative); OPIATES Negative (Negative); PCP Negative (Negative); THC Negative (Negative)
[2018-12-16 00:57] LABS: URINE BILIRUBIN NEGATIVE (Negative); URINE BLOOD TRACE (Negative); URINE CLARITY SL CLOUDY; URINE COLOR YELLOW; URINE GLUCOSE-RANDOM TRACE (Negative); URINE KETONES TRACE (Negative); URINE LEUKOCYTES NEGATIVE (Negative); URINE NITRITE NEGATIVE (Negative); URINE PROTEIN TRACE (Negative); URINE SPECIFIC GRAVITY 1.025 (1.005-1.030); URINE UROBILINOGEN 0.2 E.U./dl (0.2-1.0)
[2018-12-16 01:17] LABS: ABSOLUTE BASOPHILS 0.1 thou/uL (0.0-0.2); ABSOLUTE EOSINOPHILS 0.1 thou/uL (0.0-0.7); ABSOLUTE LYMPHOCYTES 1.4 thou/uL (0.8-5.3); ABSOLUTE MONOCYTES 0.7 thou/uL (0.0-1.2); ABSOLUTE NEUTROPHILS 11.7 thou/uL (1.6-8.1); PLATELET ESTIMATE ADEQUATE
[2018-12-16 07:53] VITALS: BP 172/68
[2018-12-16 08:03] VITALS: BP 144/73
[2018-12-16 08:20] VITALS: BP 154/85
--- NOTE | 2018-12-16 09:10 | NUR ---
REC'D REPORT FROM [employer] AT 0740, PATIENT ARRIVED ON UNIT APPROX 0800 VIA CART AND ER STAFF. UNABLE TO ASSESS ORIENTATION. FOLLOWS COMMANDS SPORADICALLY. APHASIC. UNABLE TO EFFECTIVELY COMMUNICATE NEEDS TO STAFF. ASSESSMENT COMPLETE, VS OBTAINED. V GROOVE CUTTER IN PLACE, SR. O2 SATS 99% ON 4L. BECOMES DYSPNEIC WITH POSITION CHANGES. FREQUENT CHECKS FOR SAFETY AND PATIENT NEEDS.
--- NOTE | 2018-12-16 11:30 | NUR ---
FAMILY PRESENT AT BEDSIDE. ADMISSION INFORMATION COMPLETED WITH ASSISTANCE OF DAUGHTER, GORDON. PATIENT REC'D PRN MED FOR ANXIETY. DIFFICULT TO ASSESS PRESENCE OF PAIN. FACIAL GRIMACE EASES QUICKLY WITH REPOSITIONING. PATIENT SLEEPING FREQUENTLY FOR SHORT PERIODS, AWAKENS EASILY.
[2018-12-16 12:00] VITALS: BP 132/51
[2018-12-16 16:21] VITALS: BP 146/74
--- NOTE | 2018-12-16 18:00 | NUR ---
PATIENT MRI QUESTIONNAIRE FILLED OUT WITH ASSISTANCE OF PATIENT'S DAUGHTER. PATIENT'S DAUGHTER STATES PATIENT IS VERY CLAUSTROPHOBIC AND DOES NOT TOLERATE MRI WITHOUT MEDICATION FOR ANXIETY. PHYSICIAN AWARE.
[2018-12-16 20:00] VITALS: BP 144/66
[2018-12-17] VITALS: BP 116/62
[2018-12-17 04:00] VITALS: BP 168/68
--- NOTE | 2018-12-17 04:45 | NUR ---
ASSUMED PT CARE AT APPROX 1930. PT IS ASLEEP BUT WAKES UP WHEN NAME IS CALLED. PT IS APHASIC, FOLLOWS SOME SIMPLE COMMANDS. REASSESSMENT DONE CHARTED. POSITION CHANGES DONE Q2H. MAINTAINED ON NPO. CALL LIGHT WITHIN REACH. HOURLY ROUNDING DONE FOR PT SAFETY.
[2018-12-17 05:31] LABS: ABSOLUTE LYMPHOCYTES 0.9 thou/uL (0.8-5.3); ABSOLUTE MONOCYTES 0.2 thou/uL (0.0-1.2); ABSOLUTE NEUTROPHILS 11.6 thou/uL (1.6-8.1); BASOPHILS 0.2 %; HEMATOCRIT 49.3 % (37.0-47.0); HEMOGLOBIN 16.7 gm/dL (12.0-15.0); LYMPHOCYTES 6.8 %; MCH 31.1 pg (26.0-34.0); MCHC 33.9 g/dL (28.0-37.0); MCV 91.6 fL (80.0-100.0); MONOCYTES 1.3 %; MPV 10.4 fl. (7.2-11.1); NUCLEATED RBCS 0 /100WBC; PLATELET COUNT* 246 thou/uL (150-400); POLYS 91.7 %; RBC 5.39 mil/uL (4.20-5.00); RDW-CV 15.3 % (10.5-14.5); WBC 12.6 thou/uL (4.0-11.0)
[2018-12-17 06:10] LABS: ANION GAP 9 mmol/L (7-16); BUN 19 mg/dL (7-18); CALCIUM 9.1 mg/dL (8.5-10.1); CHLORIDE 98 mmol/L (98-107); CO2 26 mmol/L (21-32); CREATININE 1.1 mg/dL (0.6-1.3); GLUCOSE 188 mg/dL (70-99); POTASSIUM 4.8 mmol/L (3.5-5.1); SODIUM 133 mmol/L (136-145)
[2018-12-17 06:27] LABS: CHOLESTEROL 174 mg/dL (<200); HDL CHOLESTEROL 27 mg/dL (>40); LDL CHOLESTEROL 130 mg/dL (<100); TC:HDL 6.4 Ratio (Not establshd); TRIGLYCERIDE 87 mg/dL (<150); VLDL 17 mg/dL (<40)
[2018-12-17 06:28] LABS: SERUM ASSESSMENT Clear
--- NOTE | 2018-12-17 11:18 | NUR ---
Spoke with Pt's friend at bedside, per friend, Pt had a stroke and is now nonverbal. Prior to stroke, Pt resided at home with her son. Pt was independent with ADLs and IADLs. Pt used a wc for community distances. Pt has home o2 through [employer] for NOC use. Hx of HH, friend does not know with which agency. No hx of SNF. CM following for disposition.
[2018-12-17 11:40] VITALS: BP 148/74
--- NOTE | 2018-12-17 12:34 | 2DMMODE ---
[place] [address] 2 D/M-MODE ECHOCARDIOGRAM Name: DIOGO MEDINA Room: [address] IN [facility]#: [id number] Admission: 12/16/18 Attend Phys: Troy Friedman MD Discharge: Date of : 60 Date of Service: 12/17/18 1234 Report #: [id number] THIS REPORT FOR: //name// APPROVED REPORT Study performed: 12/17/2018 10:19:50 EXAM: Comprehensive 2D, Doppler, and color-flow Echocardiogram Patient Location: In-Patient Room #: 208 Status: routine BSA: 2.53 HR: 78 bpm BP: 168/68 mmHg Rhythm: NSR Other Information Technically limited study due to body habitus. Indications CVA/TIA Echo Enhancing Agent Indication: Rule out Shunt Agent(s) / Amount(s) Used: Agitated Saline 10 cc 2D Dimensions IVSd: 14.39 (7-11mm) LVOT Diam: 19.50 (18-24mm) LVDd: 40.58 mm PWd: 12.74 (7-11mm) Ascending Ao: 31.93 (22-36mm) LVDs: 24.45 (25-40mm) Aortic Valve AoV Peak Jay.: 1.23 m/s AO Peak Gr.: 6.04 mmHg LVOT Max P.99 mmHg AO Mean Gr.: 3.67 mmHg LVOT Mean P.62 mmHg LVOT Max V: 1.12 m/s AO V2 VTI: 25.70 cm LVOT Mean V: 0.75 m/s PAULA (VTI): 2.99 cm2 LVOT V1 VTI: 25.74 cm Mitral Valve E/A Ratio: 0.89 MV Decel. Time: 240.35 ms MV E Max Jay.: 0.90 m/s MV PHT: 69.70 [place] [address] 2 D/M-MODE ECHOCARDIOGRAM Name: IDOGO MEDINA Room: [address] IN ..#: [id number] Admission: 12/16/18 Attend Phys: Troy Friedman MD Discharge: Date of : 60 Date of Service: 12/17/18 1234 Report #: [id number] MVA (PHT): 3.16 cm2 Pulmonary Valve PV Peak Jay.: 1.26 m/s PV Peak Gr.: 6.34 mmHg Left Ventricle The left ventricle is normal size. There is normal LV segmental wall motion. There is normal left ventricular wall thickness. Left ventricular systolic function is normal. The left ventricular ejection fraction is within the normal range. LVEF is 60-65%. Grade I - abnormal relaxation pattern. Right Ventricle The right ventricle is normal size. The right ventricular systolic function is normal. Atria The left atrium size is normal. Interatrial septum is intact without evidence of ASD or PFO in a technically limited study. The right atrium size is normal. Aortic Valve The aortic valve is normal in structure. No aortic regurgitation is present. There is no aortic valvular stenosis. Mitral Valve The mitral valve is normal in structure. There is no mitral valve regurgitation noted. No evidence of mitral valve stenosis. Tricuspid Valve The tricuspid valve is normal in structure. There is no tricuspid valve regurgitation noted. Pulmonic Valve The pulmonary valve is normal in structure. There is no pulmonic valvular regurgitation. Great Vessels The aortic root is normal in size. IVC is normal in size and collapses >50% with inspiration. Pericardium There is no pericardial effusion. <Conclusion> The left [place] [address] 2 D/M-MODE ECHOCARDIOGRAM Name: DIOGO MEDINA Room: [address]#: [id number] Admission: 12/16/18 Attend Phys: Troy Friedman MD Discharge: Date of : 60 Date of Service: 12/17/18 1234 Report #: [id number] There is normal left ventricular wall thickness. Left ventricular systolic function is normal. The left ventricular ejection fraction is within the normal range. LVEF is 60-65%. Grade I - abnormal relaxation pattern. The right ventricle is normal size. The left atrium size is normal. The aortic valve is normal in structure. The mitral valve is normal in structure. The tricuspid valve is normal in structure. IVC is normal in size and collapses >50% with inspiration. There is no pericardial effusion. There is normal LV segmental wall motion. <ELECTRONICALLY SIGNED> By: Paul Orr MD, [facility] 12/17/18 1234 1234 1234 Paul Orr MD, FACC /INF
--- NOTE | 2018-12-17 13:34 | EKG ---
[place] [address] ELECTROCARDIOGRAM REPORT Name: DIOGO MEDINA Room: [address] ADM IN M.R.#: [id number] Admission: 12/16/18 Attend Phys: Troy Friedman MD Discharge: Date of : 60 Report #: [id number] THIS REPORT FOR: //name// [facility] ED Test Date: 2018-12-15 Test Time: 23:08:17 Pat Name: DIOGO MEDINA Department: Room: [facility] Gender: F Physiologist: SALINAS : 1960 Requested By: Linda Gómez Order Number: [id number] MD: Paul Orr Measurements Intervals [place] Rate: 87 P: 52 VT: 199 QRS: 121 QRSD: 95 T: 33 QT: 357 QTc: 430 Interpretive Statements Sinus rhythm Right axis deviation Low voltage, extremity and precordial leads Nonspecific T abnormalities, anterior leads Minimal ST elevation, inferior leads Compared to ECG 06/09/2018 08:11:59 T-wave abnormality now present ST (T wave) deviation now present Sinus tachycardia no longer present Myocardial infarct finding no longer present Electronically Signed On 12-17-2018 13:34:19 CDT by Paul Orr [email or web address] <ELECTRONICALLY SIGNED> By: Paul Orr MD, [facility] 12/17/18 1334 2308 2308 Paul Orr MD, [facility] /EPI
[2018-12-17 15:32] VITALS: BP 134/60
--- NOTE | 2018-12-17 15:33 | NUR ---
MDS COORDINATOR: MET WITH PATIENT AND SON TODAY. DISCUSSED STROKE PROGRAM AND PLAN OF CARE. WILL FOLLOW.
[2018-12-17 20:00] VITALS: BP 131/60
[2018-12-18] VITALS: BP 145/66
[2018-12-18 04:00] VITALS: BP 150/70
--- NOTE | 2018-12-18 04:35 | NUR ---
ASSUMED PT CARE AT 1930. NURSING ASSESSMENT COMPLETED AT START OF SHIFT. NIH 25 THIS SHIFT. PT REMAINS APHASIC, RIGH SIDE HEMIPLEGIA. SR/ST ON REAL ESTATE ASSOCIATE ATTORNEY. Q2H REPOSITIONING COMPLETED. CALL LIGHT WITHIN REACH.
[2018-12-18 05:19] LABS: ABSOLUTE LYMPHOCYTES 1.7 thou/uL (0.8-5.3); ABSOLUTE MONOCYTES 0.9 thou/uL (0.0-1.2); ABSOLUTE NEUTROPHILS 12.9 thou/uL (1.6-8.1); BASOPHILS 0.3 %; HEMATOCRIT 48.9 % (37.0-47.0); HEMOGLOBIN 16.6 gm/dL (12.0-15.0); LYMPHOCYTES 10.9 %; MCH 30.9 pg (26.0-34.0); MCHC 33.9 g/dL (28.0-37.0); MCV 91.4 fL (80.0-100.0); MONOCYTES 5.8 %; MPV 10.6 fl. (7.2-11.1); NUCLEATED RBCS 0 /100WBC; PLATELET COUNT* 257 thou/uL (150-400); RBC 5.35 mil/uL (4.20-5.00); RDW-CV 14.9 % (10.5-14.5); WBC 15.5 thou/uL (4.0-11.0)
[2018-12-18 05:28] LABS: CALCIUM 9.6 mg/dL (8.5-10.1); POTASSIUM 4.6 mmol/L (3.5-5.1)
--- NOTE | 2018-12-18 07:25 | NUR ---
CHANGE OF SHIFT, BEDSIDE REPORT GIVEN PATIENT SEEN AT BEDSIDE, IN BED ASLEEP ASSUMED PATIENT CARE
[2018-12-18 11:38] VITALS: BP 138/70
[2018-12-18 12:05] LABS: GLYCOHEMOGLOBIN (HGB A1C) 6.6 % (4.8-5.6)
--- NOTE | 2018-12-18 12:19 | CON ---
[address] [address] CONSULTATION Name: DIOGO MEDINA Room: [address] IN .R.#: [id number] Admission: 12/16/18 Attend Phys: Troy Friedman MD Discharge: Date of : 60 Report #: [id number] THIS REPORT FOR: //name// CC: Ethan Friedman DATE OF SERVICE: 12/17/2018 REASON FOR CONSULTATION: COPD. HISTORY OF PRESENT ILLNESS: This is a 58-year-old female patient who was seen on the floors. She is nonverbal, did not participate in history. She was admitted to this facility in the above-mentioned date with weakness after she was found down at home. She had right-sided weakness and her workup in the ER suggests a stroke; however, because she was out of the window for any TPA she stayed at the facility. She has a background history of COPD, obesity and obstructive sleep apnea, not on any treatment. Reviewing her records indicate that she was ____ this facility in the past. The patient is awake, looks comfortable, eyes open when I called her name, no respiratory distress, but she is nonverbal, I am not sure if she actually understood my question when I asked her to do some commands, she did not follow any commands. She was on oxygen by nasal cannula. I did review the previous medical records from previous hospitalization. She was seen by our group in the past back in June 2018 when she was here for asthma exacerbation. Her record indicated that she is a smoker and has obstructive sleep apnea, although not on any therapy for it. At that time, she was admitted with asthma exacerbation. PAST MEDICAL HISTORY: History of cholecystectomy, cellulitis, history of reflux disease. She had influenza in the past. At one point, she was on CPAP for obstructive sleep apnea and supposed to have followup study for BiPAP that she never made it. She has tonsillectomy, prior , morbid obesity, diabetes mellitus, coronary artery disease, and asthma in addition to smoking, asthma/COPD overlap. PAST SURGICAL HISTORY: As above. SOCIAL HISTORY: Per the chart, she is a smoker. FAMILY HISTORY: Positive for mesothelioma in the family. REVIEW OF SYSTEMS: Unobtainable due to her condition. MEDICATIONS: She is on Solu-Cortef, Pepcid, aspirin, pantoprazole, montelukast, Lovenox, Pulmicort, DuoNebs, lorazepam, [place] [address] CONSULTATION Name: DIOGO MEDINA Room: [address]#: [id number] Admission: 12/16/18 Attend Phys: Troy Friedman MD Discharge: Date of : 60 Report #: [id number] PHYSICAL EXAMINATION: GENERAL: Lying in bed, arousable, looked at me with her eyes and interact, but did not follow commands. She moved her left upper extremity spontaneously and left lower extremity, but no movement in the right upper or right lower extremity, overweight lady with a BMI of 54.2. HEAD: Normocephalic, atraumatic. EYES: Pupils reactive to light. External ear looks normal. Oral cavity, dry mucous membrane. NECK: Supple. No palpable lymph node. Trachea is central. CHEST: Diminished air movement bilaterally with prolonged expiratory phase with occasional wheezes. HEART: S1, S2, no murmur. ABDOMEN: Benign, soft, lax, nontender. Positive bowel sounds. EXTREMITIES: Lower extremity, trace edema, no calf tenderness. SKIN: Normal for age and race, no rash. Some chronic discoloration in the lower extremities. PSYCHIATRIC: Mood and affect could not be evaluated. NEUROLOGIC: Right-sided facial drooping with RIGHT-sided weakness in the upper and lower extremities. VITAL SIGNS: She is on 3 liter oxygen. Blood pressure 140/74, breathing 19 times a minute, pulse rate 72 and temperature 37.2. LABORATORY DATA: Her white blood count 14.1, hemoglobin 16.4 and platelets of 251. Her INR is 1 with a creatinine of 1.1, sodium 133, potassium 4.8 and BUN of 12. She had CT of the head and neck, suspicious for stroke, please see report for details. Her chest x-ray did not show acute cardiopulmonary process. IMPRESSION: 1. History of asthma/chronic obstructive pulmonary disease overlap. 2. Bronchospasm. I did hear wheezing on examination. 3. Obstructive sleep apnea, not on any treatment at home. 4. Acute stroke. 5. RIGHT-sided weakness. Unfortunately, the patient is aphasic. I am not sure if she actually has also receptive aphasia because she did not follow any commands and I am not sure if she understood my questions. At this point, she is on couple of liters oxygen, tolerating that well, protecting the airways; however, she will benefit from noninvasive ventilation, especially there is any change in mental status. I agree with scheduled nebulization treatments at this point. She is on steroids and Solu-Cortef. I would try BiPAP during sleep to protect her airways[place] [address] CONSULTATION Name: DIOGO MEDINA Room: [address] IN [facility].#: [id number] Admission: 12/16/18 Attend Phys: Troy Friedman MD Discharge: Date of : 60 Report #: [id number] her to have speech evaluation before start feeding her. I would keep n.p.o. Neurology following along. Thank you for the consult. <ELECTRONICALLY SIGNED> By: Anai Priest MD 12/18/18 1219 1235 [id number] Priest MD /nt
--- NOTE | 2018-12-18 14:18 | NUR ---
Pt is not an acute rehab candidate at this time, per rehab Dr, they will continue to follow. CM to initiate SNF discussions with family.
[2018-12-18 16:00] VITALS: BP 123/51
[2018-12-18 20:00] VITALS: BP 154/74
[2018-12-19] VITALS: BP 144/57
[2018-12-19 04:00] VITALS: BP 134/68
--- NOTE | 2018-12-19 05:03 | NUR ---
ASSUMED PT CARE AT 1930. NURSING ASSESSMENT COMPLETED AT START OF SHIFT. PT TRACING SR/ST ON INDOOR LANDSCAPE ARCHITECT. HOURLY ROUNDING COMPLETED. Q2H REPOSITIONING COMPLETED. ALL NEEDS MET THIS SHIFT. PT UNABLE TO VERBALIZE NEEDS, PROVIDED WITH A PICTURE CUE BOOKLET. PT DOES NOT APPEAR TO BE IN PAIN. NO GRIMMACING, NO GUARDING, NO VOCALIZATION OF PAIN. PT RESTLESS AT TIMES, PRN ATIVAN ADMINISTERED X1.FALL PRECAUTIONS IN PLACE. CALL LIGHT WITHIN REACH.
[2018-12-19 05:38] LABS: ABSOLUTE BASOPHILS 0.1 thou/uL (0.0-0.2); ABSOLUTE EOSINOPHILS 0.1 thou/uL (0.0-0.7); ABSOLUTE LYMPHOCYTES 3.8 thou/uL (0.8-5.3); ABSOLUTE MONOCYTES 1.2 thou/uL (0.0-1.2); ABSOLUTE NEUTROPHILS 10.9 thou/uL (1.6-8.1); BASOPHILS 0.5 %; EOSINOPHILS 0.9 %; HEMATOCRIT 51.5 % (37.0-47.0); HEMOGLOBIN 17.1 gm/dL (12.0-15.0); LYMPHOCYTES 23.8 %; MCH 30.9 pg (26.0-34.0); MCHC 33.2 g/dL (28.0-37.0); MCV 93.1 fL (80.0-100.0); MONOCYTES 7.3 %; MPV 10.5 fl. (7.2-11.1); NUCLEATED RBCS 0 /100WBC; PLATELET COUNT* 197 thou/uL (150-400); POLYS 67.5 %; RBC 5.53 mil/uL (4.20-5.00); RDW-CV 15.2 % (10.5-14.5); WBC 16.1 thou/uL (4.0-11.0)
[2018-12-19 06:04] LABS: CALCIUM 9.6 mg/dL (8.5-10.1); POTASSIUM 4.3 mmol/L (3.5-5.1)
--- NOTE | 2018-12-19 07:20 | NUR ---
CHANGE OF SHIFT, BEDSIDE REPORT GIVEN PATIENT SEEN AT BEDSIDE, IN BED ASLEEP ASSUMED PATIENT CARE
[2018-12-19 08:00] VITALS: BP 132/54; BP 139/63
--- NOTE | 2018-12-19 10:29 | NUR ---
CM spoke with Pt's dtr, Evie, on the phone. Discussed disposition and need for skilled post dc, dtr wants referrals sent to [facility], [facility] and [facility]. Anticipate dc tomorrow. Following.
[2018-12-19 12:03] VITALS: BP 181/99
[2018-12-19 16:23] VITALS: BP 142/63
--- NOTE | 2018-12-19 18:00 | EEG ---
[address] [address] EEG STUDY REPORT Name: DIOGO MEDINA Room: [address] IN .R.#: [id number] Admission: 12/16/18 Attend Phys: Troy Friedman MD Discharge: Date of : 60 Report #: [id number] THIS REPORT FOR: //name// CC: Ethan Friedman DATE OF SERVICE: 12/16/2018 This patient is being evaluated for altered mental status. EEG was done by placing the electrodes by standard 10-20 system of electrode placement. Both referential and sequential montages were used for recording. Background activity in this patient's EEG on the right side is about 8-9 Hz. On the left side, it is somewhat slower. It is intermixed with theta range slowing on both sides. Photic stimulation could not be done. IMPRESSION: Lot of artifact in this EEG, but EEG may be trace, less formed on the left side as compared to the right side. Clinical correlation is recommended. <ELECTRONICALLY SIGNED> By: Quintin Jesus MD 12/19/18 1800 1209 1223Pabner Jesus MD /nt
--- NOTE | 2018-12-19 18:00 | CON ---
[address] [address] CONSULTATION Name: DIOGO MEDINA Room: [address] IN M.R.#: [id number] Admission: 12/16/18 Attend Phys: Troy Friedman MD Discharge: Date of : 60 Report #: [id number] THIS REPORT FOR: //name// CC: Ethan Miller Troy Friedman DATE OF SERVICE: 12/16/2018 HISTORY OF PRESENT ILLNESS: This is a 58-year-old female patient who was discussed with the Emergency Room physician last night multiple times. The patient was last seen at 4:30 in the evening and when the son came, he found her unresponsive and aphasic. She was also paralyzed on the right side. They brought her to the Emergency Room and as I understand from the Emergency Room physician, they worked her up with the CT angio and CT scan. She was outside the window for any TPA. She was having a question of stenosis in the left middle cerebral artery. Images were degraded by motion artifact. I asked them to contact some tertiary care center to see if she is a candidate for any intervention. They contacted [facility], but they indicated she is outside the time window. Since the time window is 24 hours, I asked them to contact [facility] to see what their opinion is. [facility] reviewed the patient's images and they indicated that the stroke is already showing up on the CT indicating irreversible damage to the brain and that is why she is not an intervention candidate. That is a contraindication for proceeding with any intervention. So both places indicated that she is not an intervention candidate and no intervention was done. REVIEW OF SYSTEMS: I called the patient's daughter and took the review of systems from her. This patient unfortunately is a noncompliant patient. She has a prior history of cardiac disease, but she continued to smoke. She has a history of sleep apnea, which is an independent risk factor for stroke, but she does not take CPAP. She has lost some weight, but she continued to be a heavy set. She does have factor V Leiden deficiency, but that has not caused her any problem. There is a poorly defined history of Lyme disease. She does have a history of fibromyalgia and asthma. PAST MEDICAL HISTORY: Negative for stroke, but is positive for multiple other things. FAMILY HISTORY: Negative for any seizures or epilepsy. SOCIAL HISTORY: She continued to smoke. PHYSICAL EXAMINATION: VITAL SIGNS: Her blood pressure is 146/74, respiration is 16, pulse is 88 and temperature is 98.9. [place] [address] CONSULTATION Name: DIOGO MEDINA Room: [address]#: [id number] Admission: 12/16/18 Attend Phys: Troy Friedman MD Discharge: Date of : 60 Report #: [id number] CARDIOVASCULAR: Cardiac examinations appear unremarkable. NEUROLOGIC: Examination is limited. She is conscious, but she is completely aphasic. She cannot follow any commands. She is densely hemiplegic on the right side. Sensory examination is impossible because of aphasia. IMPRESSION: Clinically, it looks like the patient has a large left hemispheric cerebrovascular accident. She has multiple risk factors including obesity, untreated sleep apnea and continued nicotine abuse. She received aspirin suppository in the Emergency Room. As I understand from the Emergency Room, she was outside the window for TPA. We got 2 opinions from neuro intervention and both places said that she is not an intervention candidate. 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 Talking to the family, it does not look like she has any contraindication for MRI, but I do not know whether she will cooperate that or not. RECOMMENDATION: I will try to get a carotid Doppler done and an echocardiogram done and then we have to think about monitoring for a long run. Although the patient is relatively young, her neuro deficit is so profound that I suspect her to be left with significant disability. Total time spent 50 minutes, more than half in counseling and coordinating. <ELECTRONICALLY SIGNED> By: Quintin Jesus MD 12/19/18 1800 1859 0031Parreg Jesus MD /ramesh
[2018-12-19 20:00] VITALS: BP 147/70
[2018-12-20] VITALS: BP 121/72
[2018-12-20 04:00] VITALS: BP 131/77
[2018-12-20 04:13] LABS: ABSOLUTE BASOPHILS 0.1 thou/uL (0.0-0.2); ABSOLUTE EOSINOPHILS 0.1 thou/uL (0.0-0.7); ABSOLUTE LYMPHOCYTES 2.1 thou/uL (0.8-5.3); ABSOLUTE NEUTROPHILS 13.7 thou/uL (1.6-8.1); BASOPHILS 0.4 %; EOSINOPHILS 0.4 %; HEMATOCRIT 52.2 % (37.0-47.0); LYMPHOCYTES 12.3 %; MCH 29.9 pg (26.0-34.0); MCHC 32.6 g/dL (28.0-37.0); MCV 91.7 fL (80.0-100.0); MONOCYTES 5.7 %; MPV 10.3 fl. (7.2-11.1); NUCLEATED RBCS 0 /100WBC; PLATELET COUNT* 199 thou/uL (150-400); POLYS 81.2 %; RDW-CV 14.9 % (10.5-14.5); WBC 16.9 thou/uL (4.0-11.0)
[2018-12-20 04:16] LABS: CALCIUM 9.2 mg/dL (8.5-10.1); CREATININE 0.9 mg/dL (0.6-1.3); POTASSIUM 3.9 mmol/L (3.5-5.1)
--- NOTE | 2018-12-20 05:33 | NUR ---
ASSUMED PT CARE AT 1930. NURSING ASSESSMENT COMPLETED AT START OF SHIFT. PT TRACING SR ON BARREL ENDSHAKE ADJUSTER. Q2H REPOSITIONING COMPLETED. PT UNABLE TO COUGH UP PHLEM, PT MAKING GURGLING NOISE, SUCTION PROVIDED, GAG REFLEX TRIGGERED AND PATIENT ABLE TO COUGH UP YELLOW THICK SPUTUM. HOURLY ROUNDING COMPLETED. CALL LIGHT WITHIN REACH.
[2018-12-20 08:00] VITALS: BP 149/56
--- NOTE | 2018-12-20 08:40 | NUR ---
[facility] unable to accept, anticipate that Pt will need LTC and they do not have the bed availability. Kiley from [facility] will be out around 10am to complete an onsite. CM left message for admissions at [facility], awaiting callback. Anticipate that Pt could be ready to dc today.
[2018-12-20 12:33] VITALS: BP 152/60
[2018-12-20 16:37] VITALS: BP 148/65
--- NOTE | 2018-12-20 18:56 | NUR ---
RECEIVED REPORT FROM MELVA FISHER. ASSUMED CARE OF PT AROUND 0730. PT A&O X4. VSS. PERL DEVELOPER IN PLACE TRACING SR WITH NO CHANGES THIS SHIFT. PT ABLE TO USE YES/NO SIGN TO ANSWER QUESTIONS/MAKE NEEDS KNOWNS. AM ASSESSMENT AND VITALS COMPLETED CHARTED. PT DENIES PAIN OR DISCOMFORT THIS SHIFT. PT SOUNDING WET - SUCTION PROVIDED, THICK SPUTUM OBTAINED. PT NEEDING ASSISTANCE WITH MEALS, APPETITE FAIR. [facility] INTACT TO DD, URINE JAYMIE. PT BEING TURNED Q2HRS. DAUGHTER VISITED THIS AFTERNOON. PT TO DC TOMORROW OR MONDAY TO [facility]. FALL PRECAUTIONS IN PLACE. CALL LIGHT IS WITHIN REACH. HOURLY ROUNDING PERFORMED.
[2018-12-20 20:00] VITALS: BP 150/73
--- NOTE | 2018-12-20 20:00 | NUR ---
RECEIVED REPORT AND ASSUMED CARE OF PT, ASSESSMENT COMPLETED. PT WITHDRAWN, OPENS EYES WHEN SPOKEN TO. NON-VERBAL DUE TO CVA. DOES FOLLOW DIRECTIONS SUCH SMILE, FOLLOW FINGER, RAISE EYE BROWS. NIH COMPLETED WITH SCORE OF 25. O2 ON AT 2L/NC, HOB ELEVATED. PT HAS CONSTANT THROATY GURGLES, DOES NOT ATTEMPT TO COUGH. TELEMETRY ON SHOWING SR WITH OCC PVC. WILL CONT TO MONITOR AND ASSIST NEEDED.
[2018-12-21] VITALS (7 sets, daily range): BP systolic 100–154; BP diastolic 57–74
--- NOTE | 2018-12-21 07:34 | NUR ---
ASSISTED WITH REPOSITIONING, PT DOES NOT LIKE WEDGES TO BACK AND PULLED THEM OUT. UNABLE TO UNDERSTAND SPEECH, PT FLUSTRATED WITH THIS AND HOLDING MY HAND TIGHTLY. PT UNABLE TO COUGH, HAVING CONSTANT GURGLING TO BACK OF THROAT. ATTEMPTED TO YANKAR SUCTION, HAS GAG REFLEX BUT NO SECRETIONS. CONT HAVING MOD AMT OF VAGINAL BLEEDING. TELEMETRY CONT TO SHOW SR WITH OCC PVC. HS GOALS OF REST AND SAFETY ACHIEVED. HOURLY ROUNDING OBSERVED.
--- NOTE | 2018-12-21 12:19 | NUR ---
FLEET SALESPERSON SPOKE TO Leonidas YIN WITH [facility] AND SHE INFORMS THAT THE FACILITY IS ABLE TO ACCEPT THE PATIENT FOR SKILLED TODAY, AND ARRANGED TRANSPORT FOR 1430. D/C TRAFFIC ROUTING ENGINEER FAXED PATIENT'S D/C ORDERS TO [facility]. D/C TRAFFIC ROUTING ENGINEER SPOKE TO THE PATIENT'S DTR TO INFORM OF THIS AND SHE IS IN AGREEMENT. D/C TRAFFIC ROUTING ENGINEER INFORMED THE RN IN-CHARGE OF THE PATIENT OF THE PATIENT'S TIME OF TRANSPORT AND WHERE TO CALL REPORT. RN IN AGREEMENT. CM WILL REMAIN AVAILABLE TO ASSIST AND FOLLOW NEEDED. [facility] PHONE: [phone] FAX: [phone]
[2018-12-21] MEDS ORDERED: HUMALOG100 UNIT/1 SUBQ (13:53)
[2018-12-21] MEDS ORDERED: IPRAT-ALBUT 0.5-3 ML INH (14:26)
--- NOTE | 2018-12-21 14:35 | NUR ---
ASSUMED PT CARE REPORT RECEIVED FROM NURSE PT IS AOX1 NONVERBAL, FLAT AFFECT, OPEN AND CLOSE EYES. NIH 25. R SIDE PARLYSIS. L SIDE FLACCID LYING IN BED. HOB KEPT ELEVATED PER SWALLOWING AND ASAPIRATION PRECAUTION. ACCUCHECK AND INSULIN GIVEN. PT HAS POOR APPETITE. PT WORKED WITH PT AND OT THIS AM. PT ON 2 L NC SATURATION IS 94%. PT CLEANED IN BED. NEW GOWN PROVIDED. SNF PLACEMENT FOUND FOR PT. DISCHARGE ORDERED. AWAITING FOR MARKETING DEVELOPMENT MANAGER.
--- NOTE | 2018-12-21 15:17 | NUR ---
PT [facility] CAT[facility] WAS DISCHARGED BEFORE PT LEFT
--- NOTE | 2018-12-21 15:18 | NUR ---
REPORT GIVEN TO NATALIA REEDER FROM [facility]
== END 2018-12-21 14:26 | DRG 64 ==
LOC: M.ERS 22:35 → M.2W 12-16 04:08 → M.TBA-ER 12-16 04:08 → M.2W 12-16 08:05
PROVIDERS: Emergency Medicine; Internal Medicine; ADMIT Family Medicine
PROC: 5A09357 Assistance with Respiratory Ventilation, Less than 24 Consecutive Hours, Continuous Positive Airway Pressure (ICD-10-PCS; principal; 2018-12-20)
DX: I61.2 Nontraumatic intracerebral hemorrhage in hemisphere, unspecified (principal); G93.41 Metabolic encephalopathy; J44.1 Chronic obstructive pulmonary disease with (acute) exacerbation; J45.901 Unspecified asthma with (acute) exacerbation; D68.51 Activated protein C resistance; G81.94 Hemiplegia, unspecified affecting left nondominant side; R47.01 Aphasia; Z68.43 Body mass index [BMI] 50.0-59.9, adult; E66.01 Morbid (severe) obesity due to excess calories; M19.90 Unspecified osteoarthritis, unspecified site; E11.9 Type 2 diabetes mellitus without complications; K21.9 Gastro-esophageal reflux disease without esophagitis; G47.33 Obstructive sleep apnea (adult) (pediatric); I25.10 Atherosclerotic heart disease of native coronary artery without angina pectoris; N93.9 Abnormal uterine and vaginal bleeding, unspecified; F17.210 Nicotine dependence, cigarettes, uncomplicated; M79.7 Fibromyalgia; K58.9 Irritable bowel syndrome, unspecified; R13.10 Dysphagia, unspecified; Z90.49 Acquired absence of other specified parts of digestive tract; Z95.5 Presence of coronary angioplasty implant and graft; Z88.0 Allergy status to penicillin; Z88.8 Allergy status to other drugs, medicaments and biological substances; Z88.6 Allergy status to analgesic agent; Z88.1 Allergy status to other antibiotic agents; Z91.040 Latex allergy status; Z82.49 Family history of ischemic heart disease and other diseases of the circulatory system